=== PATIENT | female | born 1995 | race Two or more races ===

== ENCOUNTER 2022-05-11 07:02 | Emergency (ER) | payer OTHER, SELFPAY ==
--- NOTE | ~2022-05-11 | US_ITS ---
EXAMINATION: US PELVIS. Ultrasound appendix. CLINICAL INFORMATION: Pelvic pain and right lower quadrant pain COMPARISON: None TECHNIQUE: Formal pelvic ultrasound was performed with transabdominal or endovaginal technique. An additional study of the right lower quadrant in the region of the appendix is performed. FINDINGS: The anteverted retroflexed uterus is unremarkable at 92 x 33 x 40 mm. The endometrial echo complex is 8 mm. No focal masses. Trace fluid in the cul-de-sac extending to the left lower quadrant. The right ovary is normal at 31 x 32 x 18 mm yielding a calculated volume of 9.4 mL. Physiologic cyst observed at 14 x 9 x 14 mm. The left ovary measures 35 x 16 x 17 mm yielding a calculated volume of 5.0 mL. Targeted sonography in the right lower quadrant does reveal a prominent lymph node at 35 x 11 x 30 mm as well as several other smaller nodes. Mesenteric adenitis could have such an appearance. A distended tubular structure to suggest an obstructed appendix is not seen although a very slender normal-appearing appendix at 4 mm is noted. If symptoms persist however, CT could be done. US/US pelvic ovarian doppler IMPRESSION: Prominent lymph nodes in the right lower quadrant may reflect adenitis. There is a physiologic cyst in the right ovary.
--- NOTE | ~2022-05-11 | US_ITS ---
EXAMINATION: US PELVIS. Ultrasound appendix. CLINICAL INFORMATION: Pelvic pain and right lower quadrant pain COMPARISON: None TECHNIQUE: Formal pelvic ultrasound was performed with transabdominal or endovaginal technique. An additional study of the right lower quadrant in the region of the appendix is performed. FINDINGS: The anteverted retroflexed uterus is unremarkable at 92 x 33 x 40 mm. The endometrial echo complex is 8 mm. No focal masses. Trace fluid in the cul-de-sac extending to the left lower quadrant. The right ovary is normal at 31 x 32 x 18 mm yielding a calculated volume of 9.4 mL. Physiologic cyst observed at 14 x 9 x 14 mm. The left ovary measures 35 x 16 x 17 mm yielding a calculated volume of 5.0 mL. Targeted sonography in the right lower quadrant does reveal a prominent lymph node at 35 x 11 x 30 mm as well as several other smaller nodes. Mesenteric adenitis could have such an appearance. A distended tubular structure to suggest an obstructed appendix is not seen although a very slender normal-appearing appendix at 4 mm is noted. If symptoms persist however, CT could be done. US/US pelvic and transvaginal IMPRESSION: Prominent lymph nodes in the right lower quadrant may reflect adenitis. There is a physiologic cyst in the right ovary.
--- NOTE | ~2022-05-11 | US_ITS ---
EXAMINATION: US PELVIS. Ultrasound appendix. CLINICAL INFORMATION: Pelvic pain and right lower quadrant pain COMPARISON: None TECHNIQUE: Formal pelvic ultrasound was performed with transabdominal or endovaginal technique. An additional study of the right lower quadrant in the region of the appendix is performed. FINDINGS: The anteverted retroflexed uterus is unremarkable at 92 x 33 x 40 mm. The endometrial echo complex is 8 mm. No focal masses. Trace fluid in the cul-de-sac extending to the left lower quadrant. The right ovary is normal at 31 x 32 x 18 mm yielding a calculated volume of 9.4 mL. Physiologic cyst observed at 14 x 9 x 14 mm. The left ovary measures 35 x 16 x 17 mm yielding a calculated volume of 5.0 mL. Targeted sonography in the right lower quadrant does reveal a prominent lymph node at 35 x 11 x 30 mm as well as several other smaller nodes. Mesenteric adenitis could have such an appearance. A distended tubular structure to suggest an obstructed appendix is not seen although a very slender normal-appearing appendix at 4 mm is noted. If symptoms persist however, CT could be done. US/US appendix IMPRESSION: Prominent lymph nodes in the right lower quadrant may reflect adenitis. There is a physiologic cyst in the right ovary.
[2022-05-11 07:18] VITALS: BP 107/62; PULSE 83; RESP 16; TEMP 36.8; O2SAT 98; BMI 20.2
--- NOTE | 2022-05-11 08:44 | ED.ABDPAIN ---
HPI - Abdominal Pain General Chief Complaint: Abdominal Pain Stated Complaint: abd pain, lump under belly button Time Seen by Provider: 05/11/22 08:28 Source: patient Mode of arrival: ambulatory Limitations: no limitations History of Present Illness HPI narrative: 27-year-old female presents to the ER for evaluation of lower abdominal pain that started last night. She reports lower abdominal cramping that started last night. It comes and goes. It is worse on the right side. She is also slightly nauseous but has not vomited. She had a normal bowel movement this morning. No blood. She was rubbing her stomach last night because it was hurting and she felt a small bump below her belly button. The slightly tender. The only abdominal surgery she had was a in October 2019. Her last menstrual period was 15 days ago. She has no vaginal discharge, itching, lesions. She denies chance of . MD elicited complaint: abdominal pain Pertinent past history: none Onset (ago): hour(s) (12) Pain Consistency: intermittent Location: RLQ, LLQ and suprapubic Severity: moderate Pain scale (0-10): 6 Quality: cramping Radiation: none Migration to: no migration Exacerbating factors: nothing Relieving factors: nothing Associated symptoms: nausea Related Data Date of Last Menstrual Period: 04/26/22 Patient : No Allergies Allergy/AdvReac Type Severity Reaction Status Date / Time No Known Allergies Allergy Verified 05/11/22 07:16 Review of Systems Review of Systems Constitutional: No Fever, No Chills ENT/Mouth: No sore throat, No Rhinorrhea, No Swallowing Difficulty Cardiovascular: No Chest Pain, No SOB, No Orthopnea, No Edema Respiratory: No Cough, No Sputum, No Wheezing, No dyspnea Gastrointestinal: + Nausea, No Vomiting, No Diarrhea, + abdominal Pain, No Hematochezia, No Melena Genitourinary: No Dysuria, No Urinary Frequency, No Hematuria, no vaginal bleeding, no vaginal discharge. Musculoskeletal: No joint pain, No Myalgias Skin: No Skin Lesions, No rash Neuro: No Weakness, No Numbness, No Dizziness, No Headache Psych: + Anxiety/Panic, No Depression Heme/Lymph: No Bruising, No Lymphadenopathy Endocrine: No Polyuria, No Polydipsia PMFSH Past Medical History Date of Last Menstrual Period: 04/26/22 Social History Social History Patient Tobacco Use Status: Current everyday Tobacco user Smoked in Last 30 Days: Yes Substance Use Type: Marijuana Substance Use Frequency: Occasionally Any prior treatment program specific to substance use: No Advance Directives: No Advance Directives Information Provided: No Patient : No Physical Exam ED Vital Signs: Vital Signs - 24 hr 05/11/22 07:18 05/11/22 09:46 05/11/22 10:14 Temperature 98.3 F 97.9 F Pulse Rate 83 61 70 Respiratory Rate 16 18 18 Blood Pressure 107/62 94/57 L 103/75 Pulse Oximetry 98 93 99 Oxygen Delivery Method Room Air Room Air Room Air BMI result Body Mass Index 20.2 Appearance: Alert. Oriented X3. No acute distress. Eyes: Pupils equal, round and reactive to light. ENT: Pharynx normal. Neck: Normal inspection. Neck supple. CVS: Normal heart rate and rhythm. Pulses normal. Respiratory: No respiratory distress. Breath sounds normal. Abdomen: Thin, flatm, Soft wtih mild tenderness to the suprapubic area, RLQ and LLQ. Small soft tissue mass +BS x4. Pelvic deferred Skin: Skin warm and dry. Normal skin color. Normal skin turgor. No rashes. Extremities: No lower extremity edema. Neuro: Oriented X 3. No motor deficit. No sensory deficit. Course Course Course Narrative: 27-year-old presenting with suprapubic pain and lower abdominal pain since last night. No significant tenderness on examination, no rebound or guarding. LMP 15 days ago. Suspect Mittelschmerz. Will rule out , ovarian torsion, UTI. Patient is comfortable. Reevaluation(s) Reevaluation #1: Urinalysis is negative for and UTI. Her labs are unremarkable. Her pelvic ultrasound showed no every in torsion, there is an ovarian cyst on the right side. There was also some slightly enlarged lymph nodes consistent with possible mesenteric adenitis. Her appendix was normal in appearance. Most likely viral etiology. Patient is stable for discharge home with supportive care and outpatient follow-up. Patient agrees with plan MDM - Abdominal Pain Lab Data Result diagrams: 05/11/22 08:52 05/11/22 08:52 Labs: Lab Results 05/11/22 05/11/22 05/11/22 Range/Units 08:47 08:47 08:52 WBC 9.4 (4.8-10.8) X10*3/uL RBC 4.70 (4.20-5.50) X10*6/uL Hgb 13.4 (12.0-16.0) g/dl Hct 40.5 (37.0-47.0) % MCV 86.2 (80.0-98.0) fL MCH 28.5 (27.0-33.0) pg MCHC 33.1 (31.0-35.0) g/dl RDW 12.1 (11.0-16.0) % Plt Count 431 H (160-400) X10*3/uL MPV 8.0 L (9.4-12.3) fL Immature Gran % (Auto) 0.3 (0.0-0.4) % Neut % (Auto) 64.5 (45-73) % Lymph % (Auto) 29.0 (20-40) % [place] % (Auto) 4.1 (2-11) % Eos % (Auto) 1.5 (0-4) % Baso % (Auto) 0.6 (0-2) % Lymph # (Auto) 2.7 (1.2-4.9) X10*3/uL [place] # (Auto) 0.4 (0.1-1.2) X10*3/uL Eos # (Auto) 0.1 (0.0-0.4) X10*3/uL Baso # (Auto) 0.1 (0.0-0.2) X10*3/uL Abs Immat Gran (auto) 0.03 (0.00-0.03) X10*3/uL Absolute Neuts (auto) 6.1 (2.0-8.3) x10*3/uL Absolute Nucleated RBC 0.000 (0.0-0.012) X10*3/uL Nucleated RBC % (auto) 0.0 (0.0-0.2) /100WBC Sodium (135-145) mmol/L Potassium (3.3-5.1) mmol/L Chloride (96-108) mmol/L Carbon Dioxide (22-29) mmol/L Anion Gap (12-20) BUN (9-16) mg/dL Creatinine (0.5-1.4) mg/dL Estim Creat Clear Calc Estimated GFR Random Glucose (60-115) mg/dL Calcium (8.4-10.2) mg/dL Magnesium (1.6-2.6) mg/dL Total Bilirubin (0.0-1.0) mg/dL Direct Bilirubin (0.0-0.5) mg/dL AST (5-31) U/L ALT (0-31) U/L Alkaline Phosphatase (39-117) U/L Total Protein (6.5-8.0) g/dL Albumin (3.5-5.0) g/dL Urine Color YELLOW Urine Appearance HAZY Urine pH 7.0 (5.0-8.0) Ur Specific [place] <= 1.005 (1.005-1.025) Urine Protein NEG (NEG-TRACE) MG/DL Urine Glucose (UA) NEG (NEG) MG/DL Urine Ketones NEG (NEG) MG/DL Urine Blood NEG (NEG) Urine Nitrite NEG (NEG) Ur Leukocyte Esterase NEG (NEG) Urine Test NEGATIVE (NEGATIVE) 05/11/22 Range/Units 08:52 WBC (4.8-10.8) X10*3/uL RBC (4.20-5.50) X10*6/uL Hgb (12.0-16.0) g/dl Hct (37.0-47.0) % MCV (80.0-98.0) fL MCH (27.0-33.0) pg MCHC (31.0-35.0) g/dl RDW (11.0-16.0) % Plt Count (160-400) X10*3/uL MPV (9.4-12.3) fL Immature Gran % (Auto) (0.0-0.4) % Neut % (Auto) (45-73) % Lymph % (Auto) (20-40) % [place] % (Auto) (2-11) % Eos % (Auto) (0-4) % Baso % (Auto) (0-2) % Lymph # (Auto) (1.2-4.9) X10*3/uL [place] # (Auto) (0.1-1.2) X10*3/uL Eos # (Auto) (0.0-0.4) X10*3/uL Baso # (Auto) (0.0-0.2) X10*3/uL Abs Immat Gran (auto) (0.00-0.03) X10*3/uL Absolute Neuts (auto) (2.0-8.3) x10*3/uL Absolute Nucleated RBC (0.0-0.012) X10*3/uL Nucleated RBC % (auto) (0.0-0.2) /100WBC Sodium 140 (135-145) mmol/L Potassium 4.5 (3.3-5.1) mmol/L Chloride 105 (96-108) mmol/L Carbon Dioxide 26 (22-29) mmol/L Anion Gap 14 (12-20) BUN 12 (9-16) mg/dL Creatinine 0.78 (0.5-1.4) mg/dL Estim Creat Clear Calc 80.2 Estimated GFR > 60 Random Glucose 95 (60-115) mg/dL Calcium 9.4 (8.4-10.2) mg/dL Magnesium 2.1 (1.6-2.6) mg/dL Total Bilirubin 0.4 (0.0-1.0) mg/dL Direct Bilirubin 0.2 (0.0-0.5) mg/dL AST 11 (5-31) U/L ALT 8 (0-31) U/L Alkaline Phosphatase 58 (39-117) U/L Total Protein 6.9 (6.5-8.0) g/dL Albumin 4.4 (3.5-5.0) g/dL Urine Color Urine Appearance Urine pH (5.0-8.0) Ur Specific [place] (1.005-1.025) Urine Protein (NEG-TRACE) MG/DL Urine Glucose (UA) (NEG) MG/DL Urine Ketones (NEG) MG/DL Urine Blood (NEG) Urine Nitrite (NEG) Ur Leukocyte Esterase (NEG) Urine Test (NEGATIVE) Critical Care Time Critical Care Time Critical Care Time: No Discharge Plan Discharge Clinical Impression: Mesenteric adenitis, Ovarian cyst Patient Disposition: Home, Self-Care Instructions: Ovarian Cyst (ED), Mesenteric Adenitis (ED) Additional Instructions: Your lab workup today was unremarkable. Your urine test was negative for or infection. Ultrasound showed an ovarian cyst on the right side. Also showed prominent lymph nodes which is most likely due to mild viral infection or inflammation and will resolve with time. Recommend rest, plenty of oral hydration, pain control with [id number] Motrin and/or Tylenol. Follow-up with your doctor and your OBGYN. If you develop new or worsening symptoms call 911 or come back to the ER for further evaluation. Interventions: ED Discharge Assessment Last Done: 05/11/22 10:42 Discharge Date/Time: 05/11/22 10:43
[2022-05-11 09:02] LABS: MANUAL DIFF FLAG NO
[2022-05-11 09:12] LABS: Basophils Absolute Auto 0.1 X10*3/uL (0.0-0.2); Basophils Percent Auto 0.6 % (0-2); Eosinophils Absolute Auto 0.1 X10*3/uL (0.0-0.4); Eosinophils Percent Auto 1.5 % (0-4); Hematocrit 40.5 % (37.0-47.0); Hemoglobin 13.4 g/dl (12.0-16.0); Imm Gran Abs Auto 0.03 X10*3/uL (0.00-0.03); Imm Gran Pct Auto 0.3 % (0.0-0.4); Lymphocytes Absolute Auto 2.7 X10*3/uL (1.2-4.9); Mean Corpuscular HGB Conc 33.1 g/dl (31.0-35.0); Mean Corpuscular Hemoglobin 28.5 pg (27.0-33.0); Mean Corpuscular Volume 86.2 fL (80.0-98.0); Monocytes Absolute Auto 0.4 X10*3/uL (0.1-1.2); Monocytes Percent Auto 4.1 % (2-11); Neutrophils Absolute Auto 6.1 x10*3/uL (2.0-8.3); Neutrophils Percent Auto 64.5 % (45-73); Platelet Count 431 X10*3/uL (160-400); Red Cell Distribution Width 12.1 % (11.0-16.0); White Blood Count 9.4 X10*3/uL (4.8-10.8)
[2022-05-11 09:15] LABS: Appearance Urine HAZY; Color Urine YELLOW; Glucose Urine UA NEG (NEG); Leukocyte Esterase Urine NEG (NEG); Nitrite Urine NEG (NEG); Specific Gravity - Urine <= 1.005 (1.005-1.025); UPreg QC Valid YES; Urine Blood NEG (NEG); Urine Ketones NEG (NEG); Urine Pregnancy NEGATIVE (NEGATIVE); Urine Protein NEG (NEG-TRACE)
[2022-05-11 09:30] LABS: Alanine Aminotransferase 8 U/L (0-31); Albumin Level 4.4 g/dL (3.5-5.0); Alkaline Phosphatase 58 U/L (39-117); Anion Gap 14 (12-20); Aspartate Amino Transferase 11 U/L (5-31); Bilirubin Direct 0.2 mg/dL (0.0-0.5); Bilirubin Total 0.4 mg/dL (0.0-1.0); Blood Urea Nitrogen 12 mg/dL (9-16); Calcium 9.4 mg/dL (8.4-10.2); Carbon Dioxide 26 mmol/L (22-29); Chloride 105 mmol/L (96-108); Creatinine Clr Calc Pharmacy 80.2; Estimated Glomerular Filt Rate > 60; Glucose Random 95 mg/dL (60-115); Magnesium 2.1 mg/dL (1.6-2.6); Potassium 4.5 mmol/L (3.3-5.1); Sodium 140 mmol/L (135-145); Total Protein 6.9 g/dL (6.5-8.0)
[2022-05-11 09:46] VITALS: BP 94/57; PULSE 61; RESP 18; TEMP 36.6; O2SAT 93
[2022-05-11 10:14] VITALS: BP 103/75; PULSE 70; RESP 18; O2SAT 99
== END 2022-05-11 10:43 | disposition home or self-care (01) ==
PROVIDERS: Physician Assistant; Emergency Provider Emergency Medicine Emergency Medical Services
DX: I88.0 Nonspecific mesenteric lymphadenitis (principal); N83.209 Unspecified ovarian cyst, unspecified side; R10.2 Pelvic and perineal pain; R10.31 Right lower quadrant pain; R10.32 Left lower quadrant pain; R11.0 Nausea; F17.200 Nicotine dependence, unspecified, uncomplicated; Z71.6 Tobacco abuse counseling
CPT/HCPCS: 36415; 76705; 76830; 76856; 80048; 80076; 81003; 81025; 83735; 85025; 93975; 99284

== ENCOUNTER 2024-06-21 07:30 | Emergency (ER) | payer OTHER, SELFPAY ==
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
[2024-06-21 07:37] VITALS: BP 128/82; PULSE 115; O2SAT 99
[2024-06-21 07:42] VITALS: BP 106/69; PULSE 88; RESP 16; TEMP 37; O2SAT 99; BMI 20.1
[2024-06-21] MEDS: Acetaminophen 325 MG TABLET 650 MG PO (07:55)
[2024-06-21] MEDS: Cyclobenzaprine HCl 10 MG TABLET PO (07:55)
[2024-06-21 11:16] VITALS: BP 106/69; PULSE 88; RESP 16; TEMP 37; O2SAT 99
== END 2024-06-21 11:16 | disposition home or self-care (01) ==
PROVIDERS: Emergency Provider Emergency Medicine
DX: S39.012A Strain of muscle, fascia and tendon of lower back, initial encounter (principal); V43.52XA Car driver injured in collision with other type car in traffic accident, initial encounter; Y93.89 Activity, other specified; Y92.414 Local residential or business street as the place of occurrence of the external cause; Y99.9 Unspecified external cause status
CPT/HCPCS: 72100; 99283